=== PATIENT | female | born 1970 | race Two or more races ===

== ENCOUNTER 2025-08-21 21:18 | Emergency (ER) | payer MEDICAID, SELFPAY ==
[2025-08-21 22:07] VITALS: BP 149/100; PULSE 94; RESP 18; TEMP 37.2; O2SAT 97
--- NOTE | 2025-08-21 22:28 | PD.EDABDPN ---
ED Abdominal Pain RME/HPI General Chief Complaint: Abdominal Pain Stated complaint: MID UPPER ABDOMINAL PAIN Time seen by provider: 08/21/25 22:22 Arrival date/time: 08/21/25 21:18 55F with history of hypothyroidism and HTN presents to ED with 3 days of epigastric pain. Patient denies N/V. Limitations: no limitations Related Data Home Medications ?Medication ?Instructions ?Recorded ?Confirmed Levothyroxine * (SYNTHROID *) 50 tab PO QDAY Thyroid #0 tabs 05/30/14 Allergies Allergy/AdvReac Type Severity Reaction Status Date / Time No Known Allergies Allergy Verified 08/21/25 21:21 Review of Systems Review of Systems Systems Reviewed: All systems reviewed, normal except as documented Gastrointestinal Gastrointestinal: Reports as per HPI and Reports abdominal pain Past Medical History Social History SMOKING STATUS: Never smoker ED Exam General Limitations: Present no limitations General appearance: Present alert and in no apparent distress Head Head exam: Present atraumatic Eye Eye exam: Present normal appearance, PERRL and EOMI Chest Chest inspection: Present normal inspection and symmetric chest wall rise Respiratory Respiratory exam: Present normal lung sounds bilaterally Abdominal Exam Abdominal exam: Present soft; Absent tenderness Neurological Exam Neurological exam: Present alert and oriented X3 Psychiatric Psychiatric exam: Present normal affect and normal mood Skin Skin exam: Present warm, dry, intact and normal color Course Quality Measures none Orders Category Date Time Status CBC Stat Lab 08/21/25 22:30 Completed CMP [Comprehensive Metabolic Panel] Stat Lab 08/21/25 22:30 Completed Lipase Stat Lab 08/21/25 22:30 Completed Troponin I Stat Lab 08/21/25 22:30 Completed Famotidine [Pepcid] Med 08/21/25 22:22 Discontinued 40 mg PO X1 ONE mg Hyd/Al Hyd/Violet Susp [Maalox Susp] Med 08/21/25 22:22 Discontinued 30 ml PO X1 ONE Vital Signs Vital signs: Vital Signs Temperature 99 F 08/21/25 22:07 Pulse Rate 94 08/21/25 22:07 Respiratory Rate 18 08/21/25 22:07 Blood Pressure 149/100 H 08/21/25 22:07 Pulse Oximetry (%) 97 08/21/25 22:07 Oxygen Delivery Method Room Air 08/21/25 22:07 O2 at 97% on RA and WNLs Abdominal Pain MDM MDM Narrative MDM Narrative:: 55F with history of hypothyroidism and HTN presents to ED with 3 days of epigastric pain. Patient denies N/V. Physical exam reveals no ab tenderness. Patient is afebrile, calm, and alert. Normal WOB. No leukocytosis. CMP unremarkable. Lipase and trop normal. GI cocktail improved symptoms. Outreach Consultant given. Patient data External records reviewed:: [facility] previous records Clinical information provided by:: patient Social determinants that could affect healthcare access:: mental health Patient has the following chronic illnesses:: HTN, anxiety, hypothyroidism How is presenting disease/condition affected by chronic disease/condition?: exacerbated by Evaluation data The following diagnostics were reviewed and interpreted by me:: lab results Lab and/or radiology exams considered but not ordered:: ordered Interpretation Summary: above Medications / Prescriptions Medications or Prescriptions considered but not ordered:: ordered Medication administrations:: Medication Administration History Discontinued Medications Al Hydrox/Mg Hydrox/Simethicone (Mg Hyd/Al Hyd/Violet (Maalox Reg) Susp 30 Ml Udc) 30 ml PO X1 ONE Stop: 08/21/25 22:23 Last Admin: 08/21/25 23:58 Dose: 30 ml Documented By: RIYA Famotidine (Famotidine 20 Mg Tablet) 40 mg PO X1 ONE Stop: 08/21/25 22:23 Last Admin: 08/21/25 23:57 Dose: 40 mg Documented By: RIYA above Consultations Consultation(s) initiated? (list below): No Diagnosis Differential diagnosis abdominal pain: abdominal pain, acute appendicitis, calculus of kidney, constipation, diverticulitis, gastroenteritis, pancreatitis, small bowel obstruction and other (gastritis) Most likely diagnosis given after review of the tests above:: gastritis Admission Indicated Admission indicated?: not indicated Admission Request Was there a request for admission?: No Disposition Plan Disposition Plan: Discharge Discharge Attestation Discharge Attestation: The patient and all family members were given an opportunity to ask questions and understood the discharge instructions. Discharge instructions specifically effects, indications for sooner follow up or return to the emergency department, and the expected course of current diagnosis. Patient condition: Stable Discharge Plan Plan Patient Disposition: HOME (Self Care) Discharge Disposition comment: Stable Prescriptions/Referrals Prescriptions/Med Rec: No Action Levothyroxine * (SYNTHROID *) 50 MCG tablet 50 tab PO QDAY Qty: 0 Referrals: No Primary/Family,Physician [Primary Care Provider] - In 1 week Problem List Clinical Impression: Gastritis Patient/Caregiver Discharge Instructions Education Materials: ED Gastritis (Adult) Additional Instructions: Please follow-up with PCP within 24-48 hours and return immediately if symptoms worsen. Can take TUMS and/or Pepcid along with your Omeprazole. Print Language: Thai Stand Alone Forms: Patient Portal Info Letter PA/CONFERENCE COORDINATOR Supervising Physician PA/CONFERENCE COORDINATOR Supervising Physician: Dr. Moses
[2025-08-21 22:46] LABS: Basophils # (Auto) 0.0 Thou/mm3 (0.0-0.2); Basophils % (Auto) 0 % (0-2.5); Eosinophils # (Auto) 0.1 Thou/mm3 (0.0-0.5); Eosinophils % (Auto) 1 % (0-10); Hematocrit 43.0 % (36.0-46.0); Hemoglobin 14.2 g/dL (12.0-16.0); Immature Granulocytes Auto 0.04 Thou/mm3 (0.00-0.00); Lymphocytes # (Auto) 3.2 Thou/mm3 (1.0-4.8); Lymphocytes % (Auto) 31 % (10-50); Mean Corpuscular HGB Conc 33.0 g/dl (31.0-37.0); Mean Corpuscular Hemoglobin 29.7 pg (25.0-35.0); Mean Corpuscular Volume 90 fL (80-100); Monocytes # (Auto) 0.9 Thou/mm3 (0.0-0.8); Monocytes % (Auto) 8 % (0-12); Neutrophils # (Auto) 6.3 Thou/mm3 (1.8-7.7); Neutrophils % (Auto) 60 % (37-80); Nucleated Red Blood Cell # 0.00 Thou/mm3 (0.00-0.00); Nucleated Red Blood Cell % 0 /100 WBC (0); Platelet Count 294 Thou/mm3 (140-440); RDW Standard Deviation 43.7 fL (36.4-46.3); Red Blood Count 4.78 Miln/mm3 (4.00-5.20); White Blood Count 10.5 Thou/mm3 (3.6-11.0)
[2025-08-21 23:12] LABS: Alanine Aminotransferase 26 U/L (10-49); Albumin, Serum 4.9 gm/dL (3.5-5.0); Albumin/Globulin Ratio 1.5 (1.2-2.2); Alkaline Phosphatase 88 U/L (46-116); Anion Gap 12 (7-16); Aspartate Amino Transferase 20 U/L (0-34); BUN/Creatinine Ratio 10 Ratio (12-20); Bilirubin,Total 0.3 mg/dL (0.3-1.2); Blood Urea Nitrogen 9 mg/dL (9-23); Calcium 9.6 mg/dL (8.3-10.6); Calcium (Corrected) 9.6 mg/dL (8.5-10.1); Carbon Dioxide 26.6 mMol/L (20.0-31.0); Chloride 102 mMol/L (98-107); Creatinine (Component) 0.9 mg/dL (0.6-1.3); Globulin 3.3 gm/dL (2.3-3.5); Glucose 126 mg/dL (74-106); Lipase 31 U/L (12-53); Osmolality,Calculated 281 (275-295); Potassium 4.0 mMol/L (3.4-5.1); Sodium 141 mMol/L (136-145); Total Protein 8.2 gm/dL (5.7-8.2); Troponin I < 0.020 ng/mL (0.0-0.045); eGFR > 60 See Note
[2025-08-21] MEDS: FAMOTIDINE 20 MG TABLET 40 MG PO (23:57)
[2025-08-21] MEDS: MG HYD/AL HYD/SIME (Maalox Reg) SUSP 30 ML UDC PO (23:58)
== END 2025-08-22 01:21 | disposition home or self-care (01) ==
PROVIDERS: Physician Assistant; Emergency Provider Emergency Medicine
DX: K29.70 Gastritis, unspecified, without bleeding (principal)
CPT/HCPCS: 36415; 80053; 83690; 84484; 85025; 99282; A9270

== ENCOUNTER 2025-08-22 09:57 | Outpatient (AMB) | payer MEDICAID, SELFPAY ==
--- NOTE | 2025-08-22 10:53 | PD.GSCLVISIT ---
Vital Signs - [facility] 08/22/25 10:54 Height 1.57 m Height Method Measured Weight 95.254 kg Weight Measurement Method Standing Scale BMI 38.4 BP 149/94 H Blood Pressure Source Automatic Cuff Blood Pressure Location Left Upper Arm Position Sitting Respiration 18 Pulse 101 H Pulse Source Monitor Temp 97.1 F Temp Source Temporal Artery Scan Pulse Oximetry (%) 97 Oxygen Delivery Method Room Air Med/Allergies Allergies & Medications Allergies No Known Allergies Allergy (Verified 08/22/25 10:55) Medication Reconciliation Levothyroxine * (SYNTHROID *) 50 tab PO QDAY Thyroid #0 tabs 05/30/14 [History Confirmed 08/22/25] MA Intake Visit Data Collection New Patient or Established: New Patient (never been to [facility]) Seen by Clinical Staff ONLY (RN/MA): No Pain Present Currently: Yes Pain Location: Abdomen Pain scale:: 2 Pain Scale Used: Manuel-Schrader/Numerical [employer]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 Patient states that when she performed her test, she strained and had visible blood in the sample, but has never otherwise had blood in her stool. She states that at baseline she is constipated which has been the case for the last few years, since since she was diagnosed with hypothyroidism. She states her stools tend to be pencil thin but again this is not a recent change. She said her appetite has been decreased because she is so anxious about the positive FOBT result, but she has not lost weight and has no other symptoms PMH: HTN, hypothyroidism, gastritis PSH: None Meds: Losartan, levothyroxine, omeprazole as needed Allergies: NKDA Family history: No known colon or rectal cancer ROS Review of Systems Systems Reviewed: All systems reviewed, normal except as documented Objective/Exam General General Appearance: alert, cooperative and well groomed Resp Respiratory exam: Absent respiratory distress Assessment & Plan Diagnosis / Problem List (1) Encounter for diagnostic colonoscopy due to change in bowel habits: Status: Acute Assessment & Plan: 55F with HTN, hypothyroidism, chronic constipation referred for positive FOBT. I explained that colonoscopy is necessary to evaluate positive FOBT and enumerated risks including bleeding, perforation requiring emergency surgery as well as the need to potentially abort prematurely for safety. All questions were answered and patient is agreeable to proceeding Office Procedures GNS Level of Care Nursing/Assessment Patient Status: Initial/New Patient Nursing Assessment/Reassesment: Medication Reconciliation, Update PMH in EMR and Vital Signs Coordination of Care: Complex Care and Chronic Disease 1-5, Education Complex Pt/Fam, Consent,records obtained, informed consent, Lab and Imaging orders, Results/Orders obtained and Staff clarify orders Special Needs: Language special needs New Patient Charge New Patient Point Assignment: [id number] New Patient Point Charge: QUANTITATIVE MANAGER Level 3 ([id number]) Patient Portal Questionaires Social History Tobacco History Smoking Status: Never smoker Domestic Abuse History Do You Feel Safe at Home: Yes Review of Systems Report any current symptoms Only answer those that you have currently: Past Medical History Past Medical History Have you ever been diagnosed with any of the following:
[2025-08-22 10:54] VITALS: BP 149/94; PULSE 101; RESP 18; TEMP 36.2; O2SAT 97; BMI 38.4
== END 2025-08-22 11:19 | disposition home or self-care (01) ==
PROVIDERS: PCP Physician Assistant Medical; Referring Provider Physician Assistant Medical; Supervising Provider Surgery; Visit Provider Surgery
DX: R19.4 Change in bowel habit (principal); I10 Essential (primary) hypertension; E03.9 Hypothyroidism, unspecified
CPT/HCPCS: 99203; G0463

== ENCOUNTER 2025-09-02 09:51 | Emergency (ER) | payer MEDICAID, SELFPAY ==
[2025-09-02 10:04] VITALS: BP 140/97; PULSE 79; RESP 18; TEMP 36.9; O2SAT 96; BMI 40.6
--- NOTE | 2025-09-02 10:06 | XR_ITS ---
AP and lateral views of the dorsal spine on 09/02/2025 at 10:19 a.m. CLINICAL HISTORY: Back pain for 3 days no known trauma FINDINGS: There is multilevel mild there is moderate disc space narrowing and osteophyte formation involving the lower two thirds of the dorsal spine associated with mild scoliosis convexity to the left measuring 11 degrees the visible rib cage appears normal. I do not see any abnormalities in the visible portion of the lungs. On the lateral view of the spine, much of the cervical spine can be seen in the disc spaces and vertebral appear essentially normal IMPRESSION: 1. There is multilevel moderate degenerative disc space narrowing involving the lower two thirds of the dorsal spine with surrounding degenerative osteophyte formation. 2 mild levoscoliosis measuring 11 degrees 3. No other abnormalities are seen
[2025-09-02] MEDS: KETOROLAC INJ 60 MG/2 ML VIAL 30 MG IM (10:09)
--- NOTE | 2025-09-02 10:13 | PD.EDBACK ---
ED Back Injury Pain RME/HPI General Chief Complaint: Back Pain/Injury Stated Complaint: LOWER BACK/R) SIDE PAIN 04/21 Time Seen by Provider: 09/02/25 10:06 Source: patient Arrival date/time: 09/02/25 09:51 55-year-old female with a history of hypothyroidism presents to the emergency room with a chief complaint of thoracic back pain x 1 month Mode of arrival: ambulatory Limitations: no limitations Related Data Home Medications ?Medication ?Instructions ?Recorded ?Confirmed Levothyroxine * (SYNTHROID *) 50 tab PO QDAY Thyroid #0 tabs 05/30/14 08/22/25 Previous Rx's ?Medication ?Instructions ?Recorded peg 3350-electrolytes 236 240 ml PO Q10M #4,000 mL 08/23/25 gram-22.74 gram-6.74 gram-5.86 gram solution (Golytely) Allergies Allergy/AdvReac Type Severity Reaction Status Date / Time No Known Allergies Allergy Verified 09/02/25 09:56 Review of Systems Review of Systems Systems Reviewed: All systems reviewed, normal except as documented Constitutional Constitutional: Reports system reviewed and no additional complaints, except as documented, Denies fatigue, Denies fever(s), Denies headache(s) and Denies weakness Eyes Eyes: Reports system reviewed and no additional complaints, except as documented, Denies blurry vision and Denies change in vision ENT Ears, Nose, Mouth, and Throat: Reports system reviewed and no additional complaints, except as documented, Denies otalgia, Denies headache(s), Denies nasal congestion, Denies throat swelling and Denies vertigo Cardiovascular Cardiovascular: Reports system reviewed and no additional complaints, except as documented, Denies chest pain, Denies dyspnea and Denies dyspnea on exertion Respiratory Respiratory: Reports system reviewed and no additional complaints, except as documented, Denies chest congestion, Denies cough, Denies dyspnea, Denies dyspnea on exertion and Denies wheezing Gastrointestinal Gastrointestinal: Reports system reviewed and no additional complaints, except as documented, Denies abdominal pain, Denies cramping, Denies nausea and Denies vomiting Genitourinary Genitourinary: Reports system reviewed and no additional complaints, except as documented Musculoskeletal Musculoskeletal: Reports system reviewed and no additional complaints, except as documented, Reports arthralgias, Reports back pain and Reports joint swelling Integumentary/Breasts Skin/Breast: Reports system reviewed and no additional complaints, except as documented and Denies wounds Neurologic Neurologic: Reports system reviewed and no additional complaints, except as documented, Denies confusion, Denies headache(s), Denies lack of coordination, Denies vertigo and Denies weakness Psychiatric Psychiatric: Reports system reviewed and no additional complaints, except as documented, Denies anxiety, Denies confusion, Denies depression, Denies paranoia, Denies suicidal ideation and Denies tactile hallucinations Endocrine Endocrine: Reports system reviewed and no additional complaints, except as documented and Denies fatigue Hematologic/Lymphatic Hematologic/Lymphatic: Reports system reviewed and no additional complaints, except as documented and Denies lymphadenopathy Allergic/Immunologic Allergic/Immunologic: Reports system reviewed and no additional complaints, except as documented, Denies throat swelling, Denies urticaria and Denies wheezing Past Medical History Social History SMOKING STATUS: Never smoker ED Exam General Limitations: Present no limitations General appearance: Present alert and in no apparent distress Head Head exam: Present atraumatic Eye Eye exam: Present normal appearance, PERRL and EOMI ENT ENT exam: Present normal exam, normal oropharynx and mucous membranes moist Neck Neck exam: Present normal inspection, full ROM and trachea midline Chest Chest inspection: Present normal inspection and symmetric chest wall rise Respiratory Respiratory exam: Present normal lung sounds bilaterally Cardiovascular Cardiovascular exam: Present regular rate, normal rhythm and normal heart sounds Abdominal Exam Abdominal exam: Present soft and normal bowel sounds Extremities Exam Extremities exam: Present normal inspection and full ROM Back Exam Back exam: Present normal inspection, full ROM and vertebral tenderness Back 1 view image:  1. Thoracic back pain Neurological Exam Neurological exam: Present alert, oriented X3 and CN II-XII intact Psychiatric Psychiatric exam: Present normal affect and normal mood Skin Skin exam: Present warm, dry, intact and normal color Course Quality Measures none Orders Category Date Time Status XR thoracic spine 3V Stat Exams 09/02/25 10:06 Completed Ketorolac Inj [Toradol Inj] Med 09/02/25 10:06 Discontinued 30 mg IM X1 ONE Vital Signs Vital signs: Vital Signs Temperature 98.4 F 09/02/25 10:04 Pulse Rate 79 09/02/25 10:04 Respiratory Rate 18 09/02/25 10:04 Blood Pressure 140/97 H 09/02/25 10:04 Pulse Oximetry (%) 96 09/02/25 10:04 Oxygen Delivery Method Room Air 09/02/25 10:04 Back Pain / Injury MDM Narrative MDM Narrative:: 55-year-old female with a history of hypothyroidism presents to the emergency room with a chief complaint of thoracic back pain x 1 month Patient is hemodynamically stable and in no apparent distress Physical examination shows some tenderness to the thoracic area the patient's spine. Patient denies any saddle anesthesia. Any loss of bowel or bladder function. Any numbness to the lower extremities. X-rays of the lumbar spine were completed and were negative for any acute findings Patient was discharged and educated to follow-up with primary care provider in the next 24 to 48 hours and return to the emergency room for any evidence of worsening signs or symptoms Patient data External records reviewed:: [facility] previous records Clinical information provided by:: patient Social determinants that could affect healthcare access:: none Patient has the following chronic illnesses:: No chronic illness How is presenting disease/condition affected by chronic disease/condition?: no chronic disease Evaluation data The following diagnostics were reviewed and interpreted by me:: lab results and radiology exam(s) Lab and/or radiology exams considered but not ordered:: Labs and radiology exams considered and ordered Interpretation Summary: Thoracic spine [id number]: 1. There is multilevel moderate degenerative disc space narrowing involving the lower two thirds of the dorsal spine with surrounding degenerative osteophyte formation. 2 mild levoscoliosis measuring 11 degrees 3. No other abnormalities are seen Medications / Prescriptions Medications or Prescriptions considered but not ordered:: Medication given Medication administrations:: Medication Administration History Discontinued Medications Ketorolac Tromethamine (Ketorolac Inj 60 Mg/2 Ml Vial) 30 mg IM X1 ONE Stop: 09/02/25 10:07 Last Admin: 09/02/25 10:09 Dose: 30 mg Documented By: LATHA Comments: Medication given Consultations Consultation(s) initiated? (list below): No Diagnosis Differential diagnosis back pain/injury: strain of lumbar region, thoracic back pain and discitis Most likely diagnosis given after review of the tests above:: Strain of lumbar region Admission Indicated Admission indicated?: not indicated Admission Request Was there a request for admission?: No Disposition Plan Disposition Plan: Discharge Discharge Attestation Discharge Attestation: The patient and all family members were given an opportunity to ask questions and understood the discharge instructions. Discharge instructions specifically effects, indications for sooner follow up or return to the emergency department, and the expected course of current diagnosis. Patient condition: Stable Discharge Plan Plan Patient Disposition: HOME (Self Care) Discharge Disposition comment: Stable Prescriptions/Referrals Prescriptions/Med Rec: No Action peg 3350-electrolytes [Golytely] 236-22.74-6.74 -5.86 gram recon soln 240 ml PO Q10M Qty: 4000 0RF Rx Instructions: until fecal effluent is clear Levothyroxine * (SYNTHROID *) 50 MCG tablet 50 tab PO QDAY Qty: 0 Problem List Clinical Impression: Degenerative disc disease, Levoscoliosis of thoracolumbar spine Patient/Caregiver Discharge Instructions Education Materials: Understanding Scoliosis, Anatomy of a Normal Spine Additional Instructions: Por favor, consulte con singh m?dico de cabecera en las pr?ximas 24 a 48 horas. Se le realizaron radiograf?as de la columna vertebral que muestran janusz enfermedad degenerativa de los discos intervertebrales. Tambi?n presenta escoliosis. Si observa alg?n empeoramiento de los signos o s?ntomas, acuda a la ana de urgencias de inmediato. Print Language: Luxembourgish Stand Alone Forms: [facility] Award Info., Work/School Release, Patient Portal Info Letter
== END 2025-09-02 15:06 | disposition home or self-care (01) ==
PROVIDERS: Emergency Provider Family Medicine; PCP Family Medicine
DX: M51.34 Other intervertebral disc degeneration, thoracic region (principal); M41.9 Scoliosis, unspecified
CPT/HCPCS: 72072; 96372; 99283; J1885